=== PATIENT | male | born 1995 | race Two or more races ===

== ENCOUNTER 2017-10-01 21:10 | Emergency (ER) | payer OTHER, SELFPAY ==
[2017-10-01] MEDS: CEPHALEXIN 500 MG CAP PO ×2 (23:41)
== END 2017-10-01 23:42 | disposition home or self-care (01) ==
LOC: M ED 21:10
DX: S62.660B Nondisplaced fracture of distal phalanx of right index finger, initial encounter for open fracture (principal); W23.0XXA Caught, crushed, jammed, or pinched between moving objects, initial encounter; Y92.138 Other place on military base as the place of occurrence of the external cause
CPT/HCPCS: 73140